=== PATIENT | female | born 1940 | race Caucasian/White ===

== ENCOUNTER → 2019-10-26 | Day surgery (SDC) | payer BC, MEDICARE ==
--- NOTE | 2019-10-26 14:28 | MMO ---
LEFT BREAST STEREOTACTIC BIOPSY: SURGICAL SPECIMEN: LEFT BREAST DIAGNOSTIC MAMMOGRAM POST PROCEDURE: HISTORY: Left breast calcification. FINDINGS: Successful left breast stereotactic biopsy. Calcifications are present in the third biopsy sample set . Post procedure biopsy clip was placed and is outside the needle. Post procedure mammogram demonstra edyta appropriate clip position in the upper outer quadrant of the left breast, in the CC projection. O n the MLO projection the clip is somewhat more inferior to the expected location of the calcification in the surgical cavity. TECHNIQUE: Consent obtained to perform a left breast stereotactic biopsy. The left breast was evaluated in the C C projection. Calcifications were identified. The skin was prepped and draped in a sterile fashion an d 1% Lidocaine buffered with sodium bicarbonate was used for local anesthesia. Under the biopsy needl e, position was determined pre and post firing. Two biopsy sample sets were obtained and calcificatio ns were not present. Therefore the needle was advanced and a third biopsy sample was performed. Calci fications were present. A total of 18 10 gauge core biopsy samples were obtained. The biopsy clip was deployed. Post procedure mammogram demonstrates the surgical clip in the appropriate position on the CC projection but is somewhat inferior to the biopsy site on the MLO projection. IMPRESSION: Successful left breast stereotactic biopsy. Calcifications are present. Final pathologic diagnosis is pending. POS: OFF
== END ==
LOC: MAMMO 06:47
PROVIDERS: ATTEND Pediatrics
PROC: 0HBU3ZX Excision of Left Breast, Percutaneous Approach, Diagnostic (ICD-10-PCS; principal; 2019-10-26)
DX: D05.11 Intraductal carcinoma in situ of right breast (principal)
CPT/HCPCS: 19081; 76098; 88305; 88341; 88342